=== PATIENT | female | born 1970 ===

== ENCOUNTER 2017-03-31 08:48 | Emergency (ER) | payer MEDICAID ==
[2017-03-31 08:48] VITALS: BMI 33.2
[2017-03-31 09:31] LABS: RBC URINE < 1 /hpf (0-3); URINE BACTERIA RARE (<OCC); URINE BILIRUBIN NEGATIVE (NEGATIVE); URINE BLOOD NEGATIVE (NEGATIVE); URINE COLOR Yellow (YELLOW); URINE GLUCOSE (UA) NORMAL (Normal); URINE KETONE NEGATIVE (NEGATIVE); URINE LEUKOCYTE ESTERASE NEG Leu/uL (Negative); URINE PROTEIN NEGATIVE (NEGATIVE); URINE UROBILINOGEN NORMAL mg/dL (0.2-1.0); WBC URINE 1 /hpf (0-5)
[2017-03-31] MEDS ORDERED: Sodium Chloride 0.9% 1,000 ML IV STA (10:24)
[2017-03-31] MEDS ORDERED: HYDROmorphone 1 mg/ml ISec IVP STA (10:24)
[2017-03-31] MEDS ORDERED: Sodium Chloride 0.9% 1,000 ML ONE (10:34)
[2017-03-31] MEDS ORDERED: HYDROmorphone 1 mg/ml ISec ONE (10:34)
[2017-03-31 10:37] LABS: BASO # 0.1 K/uL (0.0-0.2); BASO % 0.5 % (0.0-2.0); EOS # 0.3 K/uL (0.0-0.7); EOS % 2.9 % (0.0-4.0); HEMATOCRIT 35.2 % (34.0-47.0); LYMPH # 2.6 K/uL (1.0-4.3); LYMPH % 26.5 % (20.0-40.0); MEAN CORPUSCULAR HEMOGLOBIN 25.6 pg (27.0-31.0); MEAN CORPUSCULAR HGB CONC 31.6 g/dL (33.0-37.0); MEAN PLATELET VOLUME 9.1 fL (7.2-11.7); MONO % 10.4 % (0.0-10.0); RED CELL DISTRIBUTION WIDTH 16.7 % (11.5-14.5); WHITE BLOOD COUNT 9.9 K/uL (4.8-10.8)
[2017-03-31 10:54] VITALS: TEMP 97.7
[2017-03-31 10:57] LABS: CHLORIDE 101 mmol/L (98-107)
[2017-03-31 10:58] LABS: POTASSIUM 3.7 mmol/L (3.6-5.2); SODIUM 137 mmol/L (132-148)
[2017-03-31 11:00] LABS: ALB/GLOB RATIO 1.3 (1.0-2.1); ALKALINE PHOSPHATASE 73 U/L (38-126); ALT/SGPT 23 U/L (9-52); AST/SGOT 18 U/L (14-36); BILIRUBIN,TOTAL 0.6 mg/dL (0.2-1.3); BLOOD UREA NITROGEN 8 mg/dL (7-17); CARBON DIOXIDE 27 mmol/L (22-30); GFR AFRICAN-AMERICAN > 60; GLUCOSE,RANDOM 87 mg/dL (65-105); TOTAL PROTEIN 6.5 g/dL (6.3-8.3)
[2017-03-31 11:01] LABS: CALCIUM 8.4 mg/dl (8.6-10.4)
--- NOTE | 2017-03-31 12:08 | CT ---
PROCEDURE: CT Abdomen and Pelvis without intravenous contrast HISTORY: right flank pain COMPARISON: None. TECHNIQUE: Without contrast.. Contrast Dose: 0 Radiation dose: Total exam DLP = 844.48 mGy-cm. This CT exam was performed using one or more of the following dose reduction techniques: Automated exposure control, adjustment of the mA and/or kV according to patient size, and/or use of iterative reconstruction technique. FINDINGS: LOWER THORAX: Linear scar/ atelectasis in lingular segment left upper lobe. Pleural-based scarring right lower lobe. LIVER: Mild hepatomegaly. The liver measures approximately 19.4 cm craniocaudal. Normal attenuation. No mass or biliary dilatation. GALLBLADDER AND BILE DUCTS: Unremarkable. PANCREAS: Unremarkable. No gross lesion or ductal dilatation. SPLEEN: Unremarkable. ADRENALS: Unremarkable. No mass. KIDNEYS AND URETERS: Left upper pole cortical cyst, 3.1 cm diameter. Three Hounsfield units attenuation. No calculus or hydronephrosis. VASCULATURE: No hydroureter or ureteral calculus. BOWEL: Unremarkable. No obstruction. No gross mural thickening. APPENDIX: Unremarkable. Normal appendix. PERITONEUM: Unremarkable. No free fluid. No free air. LYMPH NODES: Unremarkable. No enlarged lymph nodes. BLADDER: Unremarkable. REPRODUCTIVE: Unremarkable uterus. There is some prominence of the cervix without evidence of discrete mass. Further evaluation is suggested. Correlate with Pap smear and transvaginal ultrasound examination. Probable left ovarian cyst, 1.9 cm. Likely physiologic. BONES: No acute fracture. OTHER FINDINGS: None. IMPRESSION: No evidence of urinary calculus or urinary tract obstruction. Mild hepatomegaly. Left renal cortical cyst. Prominence of the cervix, uncertain significance. Probable left ovarian physiologic cyst/follicle, 1.9 cm. Correlation with transvaginal pelvic ultrasound examination is suggested.
--- NOTE | 2017-03-31 12:23 | C.PDOC ---
History Of Present Illness 46 yr old female presents to the ER with complaints of right sided flank pain for the past 4 days. Patient states the pain has been getting worse. Patient denies fever, chills, nausea, vomiting, diarrhea, dysuria, hematuria, incontinence, weakness or numbness. Time Seen by Provider: 03/31/17 09:15 Chief Complaint (Nursing): Abdominal Pain History Per: Patient History/Exam Limitations: no limitations Onset/Duration Of Symptoms: Days (4) Current Symptoms Are (Timing): Still Present Past Medical History Reviewed: Historical Data, Nursing Documentation, Vital Signs Vital Signs: Last Vital Signs Temp 97.7 F 03/31/17 10:30 Pulse 61 03/31/17 12:37 Resp 16 03/31/17 12:37 BP 104/58 L 03/31/17 12:37 Pulse Ox 97 03/31/17 14:06 - Medical History PMH: Anemia, Asthma, Diabetes, HTN, Hypercholesterolemia - [facility] Procedures INTRODUCTION OF SERUM/TOX/VACCINE INTO MUSCLE, PERC APPROACH (12/24/16) Family History: States: No Known Family Hx - Social History Hx Tobacco Use: No Hx Alcohol Use: No Hx Substance Use: No - Immunization History Hx Tetanus Toxoid Vaccination: No Hx Influenza Vaccination: No Hx Pneumococcal Vaccination: No Review Of Systems Except As Marked, All Systems Reviewed And Found Negative. Constitutional: Negative for: Fever, Chills Gastrointestinal: Negative for: Nausea, Vomiting, Diarrhea Genitourinary: Negative for: Dysuria, Incontinence, Hematuria Musculoskeletal: Positive for: Other ((+) Right sided flank pain ) Neurological: Negative for: Weakness, Numbness Physical Exam - Physical Exam Appears: Non-toxic, In Acute Distress (Moderate distress due to pain ) Skin: Normal Color, Warm, Dry, No Rash Head: Atraumatic, Normacephalic Eye(s): bilateral: Normal Inspection, PERRL, EOMI Oral Mucosa: Moist Chest: Symmetrical, No Tenderness Cardiovascular: Rhythm Regular, No Murmur Respiratory: Normal Breath Sounds, No Rales, No Rhonchi, No Stridor, No Wheezing Gastrointestinal/Abdominal: Normal Exam, Soft, No Tenderness, No Guarding, No Rebound Extremity: Normal ROM, No Swelling Neurological/Psych: Oriented x3, Normal Speech, Normal Motor ED Course And Treatment - Laboratory Results Result Diagrams: 03/31/17 10:34 03/31/17 10:34 O2 Sat by Pulse Oximetry: 97 - CT Scan/US CT - Abd & Pelvis Other Rad Studies (CT/US): Read By Radiologist, Radiology Report Reviewed CT/US Interpretation: PROCEDURE: CT Abdomen and Pelvis without intravenous contrast. HISTORY: right flank pain. COMPARISON: None. TECHNIQUE: Without contrast.. Contrast Dose: 0. Radiation dose: Total exam DLP = 844.48 mGy-cm. This CT exam was performed using one or more of the following dose reduction techniques: Automated exposure control, adjustment of the mA and/or kV according to patient size, and/or use of iterative reconstruction technique. FINDINGS: LOWER THORAX: Linear scar/ atelectasis in lingular segment left upper lobe. Pleural-based scarring right lower lobe. LIVER: Mild hepatomegaly. The liver measures approximately 19.4 cm craniocaudal. Normal attenuation. No mass or biliary dilatation. GALLBLADDER AND BILE DUCTS: Unremarkable. PANCREAS: Unremarkable. No gross lesion or ductal dilatation. SPLEEN: Unremarkable. ADRENALS: Unremarkable. No mass. KIDNEYS AND URETERS: Left upper pole cortical cyst, 3.1 cm diameter. Three Hounsfield units attenuation. No calculus or hydronephrosis. VASCULATURE: No hydroureter or ureteral calculus. BOWEL: Unremarkable. No obstruction. No gross mural thickening. APPENDIX: Unremarkable. Normal appendix. PERITONEUM: Unremarkable. No free fluid. No free air. LYMPH NODES: Unremarkable. No enlarged lymph nodes. BLADDER: Unremarkable. REPRODUCTIVE: Unremarkable uterus. There is some prominence of the cervix without evidence of discrete mass. Further evaluation is suggested. Correlate with Pap smear and transvaginal ultrasound examination. Probable left ovarian cyst, 1.9 cm. Likely physiologic. BONES: No acute fracture. OTHER FINDINGS: None. IMPRESSION: No evidence of urinary calculus or urinary tract obstruction. Mild hepatomegaly. Left renal cortical cyst. Prominence of the cervix, uncertain significance. Probable left ovarian physiologic cyst/follicle, 1.9 cm. Correlation with transvaginal pelvic ultrasound examination is suggested. US - Abdomen Other Rad Studies (CT/US): Read By Radiologist, Radiology Report Reviewed CT/US Interpretation: HISTORY: Right abdominal pain. COMPARISON: CT abdomen and pelvis performed the same day. TECHNIQUE: Sonographic evaluation of the right upper quadrant of the abdomen. FINDINGS: LIVER: Measures 18.6 cm in length. Normal echogenicity of the liver parenchyma. No mass. No intrahepatic bile duct dilatation. GALLBLADDER: There are no gallstones, wall thickening or pericholecystic fluid. The sonographic Miranda's sign is negative. COMMON BILE DUCT: Measures 2.8 mm. No stones. No dilatation. PANCREAS: Unremarkable as visualized. No mass. No ductal dilatation. RIGHT KIDNEY: Measures 11.4 cm in length. Normal echogenicity. No calculus, mass, or hydronephrosis. AORTA: No aneurysmal dilatation. IVC: Unremarkable. OTHER FINDINGS: None . IMPRESSION: Mild hepatomegaly. No evidence of cholelithiasis or biliary dilatation. Progress Note: Patient refused transvaginal pelvic UIS. On re-exam patient feels better and is stable to be d/c home. She was instructed to f/u with OBGYN MARTHA. Copies off all labs and radiology reports were given to the patient. Medical Decision Making Medical Decision Making: PLAN: * CT - Abd & Pelvis * US - Abdomen * CBC * CMP * HCG * Urinalysis * Dilaudid IVP * Zofran IVP * Protonix IVP * Sodium Chloride IV Disposition - Disposition Disposition: HOME/ ROUTINE Disposition Time: 14:03 Condition: STABLE Additional Instructions: Follow up with boi MORAN and OBGYN within 1-2 days. REturn to ED if feel worse. Prescriptions: Ibuprofen [Motrin Tab] 600 mg PO Q8 #30 tab Famotidine [Pepcid] 20 mg PO BID #20 tab Instructions: Acute Abdominal Pain (ED) - Clinical Impression Clinical Impression: Abdominal pain - PA / ASSOCIATE MEDIA DIRECTOR / Resident Statement MD/DO has reviewed & agrees with the documentation as recorded. - Scribe Statement The provider has reviewed the documentation as recorded by the Scribe Nava Engel All medical record entries made by the Genaroibterrence were at my direction and personally dictated by me. I have reviewed the chart and agree that the record accurately reflects my personal performance of the history, physical exam, medical decision making, and the department course for this patient. I have also personally directed, reviewed, and agree with the discharge instructions and disposition.
[2017-03-31 12:38] VITALS: BP 104/58; PULSE 61; RESP 16
--- NOTE | 2017-03-31 13:37 | US ---
HISTORY: Right abdominal pain COMPARISON: CT abdomen and pelvis performed the same day TECHNIQUE: Sonographic evaluation of the right upper quadrant of the abdomen. FINDINGS: LIVER: Measures 18.6 cm in length. Normal echogenicity of the liver parenchyma. No mass. No intrahepatic bile duct dilatation. GALLBLADDER: There are no gallstones, wall thickening or pericholecystic fluid. The sonographic Miranda's sign is negative. COMMON BILE DUCT: Measures 2.8 mm. No stones. No dilatation. PANCREAS: Unremarkable as visualized. No mass. No ductal dilatation. RIGHT KIDNEY: Measures 11.4 cm in length. Normal echogenicity. No calculus, mass, or hydronephrosis. AORTA: No aneurysmal dilatation. IVC: Unremarkable. OTHER FINDINGS: None . IMPRESSION: Mild hepatomegaly. No evidence of cholelithiasis or biliary dilatation.
[2017-03-31 13:48] VITALS: O2SAT 97
== END 2017-03-31 14:13 | disposition home or self-care (01) ==
LOC: C.ER 08:48
DX: R10.9 Unspecified abdominal pain (principal)
CPT/HCPCS: 74176; 76705; 80053; 81001; 83690; 84703; 85025; 96361; 96374; 96375; 99285; C9113; J1170; J2405; J7040

== ENCOUNTER 2018-03-20 10:49 | Emergency (ER) | payer MEDICAID ==
[2018-03-20 10:50] VITALS: BMI 33.2
[2018-03-20 11:03] VITALS: RESP 16; O2SAT 98
--- NOTE | 2018-03-20 12:12 | RAD ---
PROCEDURE: CHEST RADIOGRAPH, 1 VIEW HISTORY: chest pain COMPARISON: Portable chest 12/28/2015. FINDINGS: LUNGS: No acute pulmonary disease appreciated bilaterally. PLEURA: No pneumothorax or pleural fluid seen. CARDIOVASCULAR: Stable cardiomegaly. No pulmonary vascular derangement appreciable. OSSEOUS STRUCTURES: No significant abnormalities. VISUALIZED UPPER ABDOMEN: Normal. OTHER FINDINGS: None. IMPRESSION: Stable cardiomegaly. No acute pulmonary disease appreciable.
[2018-03-20 12:18] LABS: BASO # 0.1 K/uL (0.0-0.2); EOS # 0.2 K/uL (0.0-0.7); EOS % 2.1 % (0.0-4.0); HEMOGLOBIN 12.6 g/dL (11.0-16.0); LYMPH # 2.9 K/uL (1.0-4.3); LYMPH % 26.6 % (20.0-40.0); MEAN CELL VOLUME 81.1 fL (81.0-99.0); MEAN CORPUSCULAR HEMOGLOBIN 27.4 pg (27.0-31.0); MEAN CORPUSCULAR HGB CONC 33.7 g/dL (33.0-37.0); MEAN PLATELET VOLUME 8.6 fL (7.2-11.7); MONO # 0.8 K/uL (0.0-0.8); MONO % 7.2 % (0.0-10.0); NEUT # 6.8 K/uL (1.8-7.0); NEUT % 63.1 % (50.0-75.0); RBC 4.59 Mil/uL (3.80-5.20); RED CELL DISTRIBUTION WIDTH 15.4 % (11.5-14.5); WHITE BLOOD COUNT 10.8 K/uL (4.8-10.8)
[2018-03-20 12:28] LABS: ALB/GLOB RATIO 1.3 (1.0-2.1); ALT/SGPT 37 U/L (9-52); AST/SGOT 26 U/L (14-36); BLOOD UREA NITROGEN 14 mg/dL (7-17); CALCIUM 9.3 mg/dl (8.6-10.4); GFR AFRICAN-AMERICAN > 60; GFR NON-AFRICAN AMERICAN > 60
[2018-03-20 12:40] LABS: B-TYPE NATRIURETIC PEPTIDE 29.6 pg/mL (0-450)
[2018-03-20] MEDS ORDERED: Aspirin 325 mg EC Tablets PO STA (12:50)
[2018-03-20] MEDS ORDERED: Potassium Chloride 20 mEq ER Tab PO STA (12:50)
[2018-03-20] MEDS ORDERED: Potassium Chloride 20 mEq ER Tab PO ONE (12:58)
--- NOTE | 2018-03-20 13:31 | C.PDOC ---
History Of Present Illness 47 y/o female, w/PMHx of HTN and diabetes, presents to the ER complaining of chest pain which has been present for the past 2 days. Patient states that she has associated SOB and dizziness. Patient reports that she decided to come to the ER because the pain is persistent. Time Seen by Provider: 03/20/18 11:36 Chief Complaint (Nursing): Chest Pain History Per: Patient History/Exam Limitations: no limitations Onset/Duration Of Symptoms: Days Current Symptoms Are (Timing): Still Present Severity: Moderate Past Medical History Reviewed: Historical Data, Nursing Documentation, Vital Signs Vital Signs: Last Vital Signs Temp 98.9 F 03/20/18 13:39 Pulse 111 H 03/20/18 13:39 Resp 16 03/20/18 13:39 BP 103/72 03/20/18 13:39 Pulse Ox 98 03/20/18 17:30 - Medical History PMH: Anemia, Asthma, Diabetes, HTN, Hypercholesterolemia Denies: HIV, Chronic Kidney Disease, Sexually Transmitted Disease Other Surgeries: Hx of surgeries - [facility] Procedures INTRODUCTION OF SERUM/TOX/VACCINE INTO MUSCLE, PERC APPROACH (12/24/16) Family History: States: No Known Family Hx - Social History Hx Tobacco Use: No Hx Alcohol Use: No Hx Substance Use: No - Immunization History Hx Tetanus Toxoid Vaccination: No Hx Influenza Vaccination: No Hx Pneumococcal Vaccination: No Review Of Systems Except As Marked, All Systems Reviewed And Found Negative. Constitutional: Negative for: Fever, Chills Cardiovascular: Positive for: Chest Pain Respiratory: Positive for: Shortness of Breath Neurological: Positive for: Dizziness Physical Exam - Physical Exam Appears: Non-toxic, No Acute Distress Skin: Normal Color, Warm, Dry Head: Atraumatic, Normacephalic Eye(s): bilateral: Normal Inspection Nose: Normal Oral Mucosa: Moist Neck: Supple Chest: Symmetrical Cardiovascular: Rhythm Regular Respiratory: Normal Breath Sounds, No Rales, No Rhonchi, No Wheezing Gastrointestinal/Abdominal: Normal Exam, Bowel Sounds, Soft Neurological/Psych: Oriented x3, Normal Speech ED Course And Treatment - Laboratory Results Result Diagrams: 03/20/18 12:07 03/20/18 12:07 ECG: Interpreted By Me, Viewed By Me ECG Rhythm: Sinus Tachycardia Interpretation Of ECG: NSR with normal intervals, normal axises, and no ST/ T wave abnormalities Rate From EC O2 Sat by Pulse Oximetry: 98 (RA) Pulse Ox Interpretation: Normal - Other Rad CXR X-Ray: Viewed By Me, Read By Radiologist Interpretation: PROCEDURE: CHEST RADIOGRAPH, 1 VIEW. HISTORY: chest pain. COMPARISON: Portable chest 12/28/2015. FINDINGS: LUNGS: No acute pulmonary disease appreciated bilaterally. PLEURA: No pneumothorax or pleural fluid seen. CARDIOVASCULAR: Stable cardiomegaly. No pulmonary vascular derangement appreciable. OSSEOUS STRUCTURES: No significant abnormalities. VISUALIZED UPPER ABDOMEN: Normal. OTHER FINDINGS: None. IMPRESSION: Stable cardiomegaly. No acute pulmonary disease appreciable. Medical Decision Making Medical Decision Making: Impression: Chest Pain Plan: --Labs --CXR --EKG --Ecotrin PO --Potassium Chloride PO Updates: The patient declines to have further medical evaluation and treatment and wishes to leave the Emergency Department. This action is against my medical advice to the patient, and with informed refusal. The patient was told that evaluation and treatment are necessary and a full explanation of the rationale was given. The risks of leaving were explained to the patient and include, but are not limited to, worsening of known or currently unknown conditions, permanent disability and from undiagnosed or untreated conditions The patient has the capacity to make this informed decision and understands the clinical situation and my explanation of the risks of leaving. The patient voluntarily accepts these risks, and a signed AMA form documenting our conversation was obtained. The patient was given the opportunity to ask questions and reconsider. The patient was encouraged to return to the Emergency Department at any time for further care. Disposition Counseled Patient/Family Regarding: Studies Performed, Diagnosis, Need For Followup - Disposition Disposition: AGAINST MEDICAL ADVICE Disposition Time: 13:29 Condition: STABLE Additional Instructions: follow up with your doctor immediately you are signing out against medical advice and assuming responsibility of your care and do not hold myself or staff responsible for irreversible outcome including . call to make an appointment take medications as prescribed return to ER if symptoms worsens or progress Forms: Gen Discharge Inst Polish, [employer] (Polish) Print Language: KOREAN - Clinical Impression Clinical Impression: Chest pain - Scribe Statement The provider has reviewed the documentation as recorded by the Belkis Yost Provider Attestation: All medical record entries made by the Genaroibterrence were at my direction and personally dictated by me. I have reviewed the chart and agree that the record accurately reflects my personal performance of the history, physical exam, medical decision making, and the department course for this patient. I have also personally directed, reviewed, and agree with the discharge instructions and disposition.
[2018-03-20 13:40] VITALS: BP 103/72; PULSE 111; TEMP 98.9
--- NOTE | 2018-03-23 05:55 | CARD ---
APPROVED REPORT EKG Measurement Heart [id number] <Conclusion> Sinus tachycardia Otherwise normal ECG
== END 2018-03-20 13:45 | disposition left against medical advice (07) ==
LOC: C.ER 10:49
DX: R07.9 Chest pain, unspecified (principal); I10 Essential (primary) hypertension; E11.9 Type 2 diabetes mellitus without complications; E78.00 Pure hypercholesterolemia, unspecified; D64.9 Anemia, unspecified

== ENCOUNTER 2018-11-25 08:26 | Emergency (ER) | payer MEDICAID ==
[2018-11-25 08:27] VITALS: BMI 33.2
[2018-11-25 08:38] VITALS: RESP 18
--- NOTE | 2018-11-25 09:13 | C.PDOC ---
History Of Present Illness 48 years old female presents to ED for complaints of lower back pain associated with intermittent nausea and dizziness that began 4 days ago. 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 Debues headache, bowel or bladder dysfunction, or weakness or numbness to legs. Time Seen by Provider: 11/25/18 08:41 Chief Complaint (Nursing): Dizziness/Lightheaded History Per: Patient History/Exam Limitations: no limitations Onset/Duration Of Symptoms: Days Current Symptoms Are (Timing): Still Present Associated Symptoms Preceding Syncopal Episode: No Predromal Symptoms (Sudden Onset) Seizure Or Post-ictal Symptoms: None Fall Associated With With Symptoms: No Recent travel outside of the [place]: No - Symptoms Of CVA Recent Aspirin Use: Unknown Current Coumadin Use?: Unknown Recent Head Trauma: No Past Medical History Reviewed: Historical Data, Nursing Documentation, Vital Signs Vital Signs: Last Vital Signs Temp 97.3 F L 11/25/18 08:34 Pulse 102 H 11/25/18 08:34 Resp 18 11/25/18 08:34 BP 113/76 11/25/18 08:34 Pulse Ox 98 11/25/18 08:34 - Medical History PMH: Anemia, Asthma, Diabetes, HTN, Hypercholesterolemia, Hyperthyroidism Surgical History: No Surg Hx - [facility] Procedures INTRODUCTION OF SERUM/TOX/VACCINE INTO MUSCLE, PERC APPROACH (12/24/16) Family History: States: No Known Family Hx - Social History Hx Tobacco Use: No Hx Alcohol Use: No Hx Substance Use: No - Immunization History Hx Tetanus Toxoid Vaccination: No Hx Influenza Vaccination: No Hx Pneumococcal Vaccination: No Review Of Systems Except As Marked, All Systems Reviewed And Found Negative. Constitutional: Negative for: Fever, Chills Gastrointestinal: Positive for: Nausea. Negative for: Vomiting, Abdominal Pain, Diarrhea Musculoskeletal: Positive for: Back Pain (Lower back ) Skin: Negative for: Rash Neurological: Positive for: Dizziness. Negative for: Weakness, Numbness Physical Exam - Physical Exam Appears: Well, Non-toxic, No Acute Distress Skin: Normal Color, Warm, Dry, No Rash Head: Atraumatic, Normacephalic Eye(s): bilateral: Normal Inspection, PERRL, EOMI Oral Mucosa: Moist Neck: Normal ROM, Supple Chest: Symmetrical, No Tenderness Cardiovascular: Rhythm Regular, No Murmur Respiratory: Normal Breath Sounds, No Rales, No Rhonchi, No Wheezing Gastrointestinal/Abdominal: Soft, No Tenderness, No Distention Back: Other (Diffuse muscle tenderness lower back ) Extremity: Normal ROM Extremity: Bilateral: Atraumatic, Normal Color And Temperature, Normal ROM Pulses: Left Radial: Normal, Right Radial: Normal Neurological/Psych: Oriented x3, Normal Speech Gait: Steady ED Course And Treatment O2 Sat by Pulse Oximetry: 98 (RA) Pulse Ox Interpretation: Normal - Other Rad Lumbar Spine X-Ray X-Ray: Viewed By Me, Read By Radiologist Interpretation: Date of service: 11/25/2018. PROCEDURE: Radiographs of the Lumbar Spine. HISTORY: pain. COMPARISON: No prior. FINDINGS: BONES: Normal alignment. No listhesis. No fracture. DISC SPACES: Mild multilevel thoracolumbar spondylosis primarily affecting the upper lumbar spine. No significant disc height loss. OTHER FINDINGS: None. IMPRESSION: Mild multilevel upper lumbar spondylosis without fracture or spondylolisthesis identified. Medical Decision Making Medical Decision Making: Plan: * Toradol * Zofran * LS Spine X-Ray Progress: 10:50: Patient reports symptoms improved. No signs of CVA or cord compression on exam. Patient denies any complaints at this time. Care instructions advised to patient and patient is in agreement. Patient is now stable for discharge and will be discharged. Return if symptoms persist or worsen. Disposition Counseled Patient/Family Regarding: Studies Performed, Diagnosis, Need For Followup, Rx Given - Disposition Referrals: Viraj Goodrich [Staff Provider] - Disposition: HOME/ ROUTINE Disposition Time: 10:38 Condition: STABLE Prescriptions: RX: Albuterol HFA [Ventolin HFA 90 mcg/actuation (8 g)] 2 puff IH [id number] #1 [id number] ff RX: Meclizine [Meclizine*] 25 mg PO Q6 #15 tab Methocarbamol [Robaxin] 500 mg PO BID 7 Days #18 tab Naproxen [EC-Naprosyn] 375 mg PO BID 5 Days tablet. Instructions: Low Back Pain in Adults Forms: [facility] (Lao), Work Excuse - Clinical Impression Clinical Impression: Lower back pain, Dizziness - Scribe Statement The provider has reviewed the documentation as recorded by the Scribe Shahenaz Vesta All medical record entries made by the Scribe were at my direction and personally dictated by me. I have reviewed the chart and agree that the record accurately reflects my personal performance of the history, physical exam, medical decision making, and the department course for this patient. I have also personally directed, reviewed, and agree with the discharge instructions and disposition.
--- NOTE | 2018-11-25 10:01 | RAD ---
Date of service: 11/25/2018 PROCEDURE: Radiographs of the Lumbar Spine. HISTORY: pain COMPARISON: No prior. FINDINGS: BONES: Normal alignment. No listhesis. No fracture. DISC SPACES: Mild multilevel thoracolumbar spondylosis primarily affecting the upper lumbar spine. No significant disc height loss. OTHER FINDINGS: None. IMPRESSION: Mild multilevel upper lumbar spondylosis without fracture or spondylolisthesis identified.
[2018-11-25 10:18] LABS: SQUAMOUS EPITHIAL < 1 /hpf (0-5); URINE BILIRUBIN NEGATIVE (NEGATIVE); URINE BLOOD NEGATIVE (NEGATIVE); URINE CLARITY Clear (Clear); URINE COLOR Colorless (YELLOW); URINE GLUCOSE (UA) 1+ mg/dL (Normal); URINE LEUKOCYTE ESTERASE NEG Leu/uL (Negative); URINE PROTEIN NEGATIVE (NEGATIVE); URINE UROBILINOGEN NORMAL mg/dL (0.2-1.0)
[2018-11-25 11:14] VITALS: BP 121/83; PULSE 93; TEMP 98.3
[2018-11-25 18:56] VITALS: O2SAT 98
== END 2018-11-25 11:13 | disposition home or self-care (01) ==
LOC: C.ER 08:26
DX: M54.5 Low back pain (principal); R42 Dizziness and giddiness
CPT/HCPCS: 72100; 81001; 81025; 96372; 99285; J1885